=== PATIENT | male | born 1980 | race Caucasian/White ===

== ENCOUNTER → 2016-05-23 | Outpatient (CLI) | payer OTHER ==
[~2016-05-23] VITALS: Ht 182.9 cm; Wt 145.8 kg
[2016-05-23 16:25] VITALS: BP 137/84; PULSE 99; Ht 182.9 cm; Wt 145.8 kg
== END | disposition home or self-care (01) ==
LOC: C.NEUR 15:00
PROVIDERS: ATTEND Internal Medicine Pulmonary Disease
DX: G47.30 Sleep apnea, unspecified (principal); G25.81 Restless legs syndrome